=== PATIENT | male | born 1990 | race Caucasian/White ===

== ENCOUNTER 2017-01-16 18:17 | Emergency (ER) | payer OTHER ==
[2017-01-16 18:28] VITALS: BP 149/78
[2017-01-16] MEDS ORDERED: METHYLPREDNISOLONE ACETATE INJ 40 MG/1 ML ML IM ONE (18:46)
[2017-01-16] MEDS ORDERED: DEXAMETHASONE SOD PHOS INJ 10 MG/1 ML VIAL IM ONE (18:46)
[2017-01-16] MEDS ORDERED: DIAZEPAM 5 MG TABLET PO ONE (18:47)
--- NOTE | 2017-01-16 19:55 | RADIOLOGY REPORT (SQ) ---
EXAM DESCRIPTION: L SPINE 2 VIEWS COMPLETED DATE/TIME: 01/16/2017 7:09 pm REASON FOR STUDY: pain COMPARISON: None. NUMBER OF VIEWS: Two views. TECHNIQUE: AP and lateral radiographic images acquired of the lumbar spine. LIMITATIONS: None. FINDINGS: MINERALIZATION: Normal. SEGMENTATION: Normal. No transitional anatomy. ALIGNMENT: Normal. VERTEBRAE: Maintained height. No fracture or worrisome bone lesion. DISCS: Preserved height. No significant osteophytes or end plate irregularity. POSTERIOR ELEMENTS: Pedicles and facets are intact. No pars defect or posterior arch defects. HARDWARE: None in the spine. PARASPINAL SOFT TISSUES: Normal. PELVIS: Intact as visualized. No fractures or worrisome bone lesions. SI joints intact. OTHER: No other significant finding. IMPRESSION: Age-appropriate exam. TECHNICAL DOCUMENTATION: JOB ID: [id number] [employer]- All Rights Reserved
--- NOTE | 2017-01-16 20:06 | ER Document Report ---
ED General - General Chief Complaint: Back Pain Stated Complaint: BACK PAIN Time Seen by Provider: 01/16/17 18:42 Mode of Arrival: Ambulatory Information source: Patient TRAVEL OUTSIDE OF THE U.S. IN LAST 30 DAYS: No - HPI Onset: Other - 26-year-old male presents to the emergency room today stating he has had back pain for last 24 hours after playing a game according [place] yesterday. Past Medical History - General Information source: Patient - Social History Smoking Status: Unknown if Ever Smoked Cigarette use (# per day): No Family History: None Renal/ Medical History: Denies: Hx Peritoneal Dialysis Review of Systems - Review of Systems Constitutional: No symptoms reported EENT: No symptoms reported Cardiovascular: No symptoms reported Respiratory: No symptoms reported Gastrointestinal: No symptoms reported Genitourinary: No symptoms reported Male Genitourinary: No symptoms reported Musculoskeletal: Back pain, Muscle pain, Muscle stiffness Skin: No symptoms reported Hematologic/Lymphatic: No symptoms reported Neurological/Psychological: No symptoms reported Physical Exam - Vital signs Vitals: Temp Pulse Resp BP Pulse Ox 97.9 F 79 16 149/78 H 94 01/16/17 18:24 01/16/17 18:24 01/16/17 18:24 01/16/17 18:24 01/16/17 18:24 Interpretation: Normal - General General appearance: Appears well, Alert - HEENT Head: Normocephalic, Atraumatic Eyes: Normal Pupils: PERRL - Respiratory Respiratory status: No respiratory distress Chest status: Nontender Breath sounds: Normal Chest palpation: Normal - Cardiovascular Rhythm: Regular Heart sounds: Normal auscultation Murmur: No - Abdominal Inspection: Normal Distension: No distension Bowel sounds: Normal Tenderness: Nontender Organomegaly: No organomegaly - Back Back: Normal, Nontender - Extremities General upper extremity: Normal inspection, Nontender, Normal color, Normal ROM , Normal temperature General lower extremity: Normal inspection, Nontender, Normal color, Normal ROM , Normal temperature, Normal weight bearing. No: Aidee's sign - Neurological Neuro grossly intact: Yes Cognition: Normal Orientation: AAOx4 [place] Coma Scale Eye Opening: Spontaneous [place] Coma Scale Verbal: Oriented [place] Coma Scale Motor: Obeys Commands [place] Coma Scale Total: 15 Speech: Normal Motor strength normal: LUE, RUE, LLE, RLE Sensory: Normal - Psychological Associated symptoms: Normal affect, Normal mood - Skin Skin Temperature: Warm Skin Moisture: Dry Skin Color: Normal Course - Re-evaluation Re-evalutation: 01/16/17 20:04 Numbness no tingling no loss of bowel or bladder function or saddle anesthesia ambulation limited by pain good distal pulses. - Vital Signs Vital signs: Temp Pulse Resp BP Pulse Ox 97.9 F 79 16 149/78 H 94 01/16/17 18:24 01/16/17 18:24 01/16/17 18:24 01/16/17 18:24 01/16/17 18:24 - Diagnostic Test Radiology reviewed: Image reviewed, Reports reviewed Discharge - Discharge Clinical Impression: Lumbar spine strain Qualifiers: Encounter type: initial encounter Qualified Code(s): S39.012A - Strain of muscle, fascia and tendon of lower back, initial encounter Disposition: HOME, SELF-CARE Instructions: Warm Packs ([facility]), Muscle Strain ([facility]), Pain Medication Injection ([facility]), Low Back Pain ([facility]), Oral Narcotic Medication ([facility]) Prescriptions: Hydrocodone/Acetaminophen [(ER) [place] 5-325 mg Tabs #6 ER Disp] 0 tab PO Q6 PRN #20 dspk PRN Reason: Methocarbamol [Robaxin 750 mg Tablet] 750 mg PO ASDIR PRN #40 tablet PRN Reason: Naproxen Sodium [Naproxen Sodium ER] 500 mg PO Q12 PRN #20 tablet.sa PRN Reason:
== END 2017-01-16 20:48 | disposition home or self-care (01) ==
LOC: ER 18:17
DX: S39.012A Strain of muscle, fascia and tendon of lower back, initial encounter (principal); M54.9 Dorsalgia, unspecified; X58.XXXA Exposure to other specified factors, initial encounter
CPT/HCPCS: 99283; 96372; 72100; J1020; J1100

== ENCOUNTER 2017-10-22 15:08 | Emergency (ER) | payer OTHER ==
[2017-10-22 15:15] VITALS: BP 167/85
--- NOTE | 2017-10-22 15:57 | ER Document Report ---
ED Psych Disorder / Suicide <ZANDER LANDRUM - Last Filed: 10/22/17 17:24> - General TRAVEL OUTSIDE OF THE U.[place]. IN LAST 30 DAYS: No <TOBI MOTTA - Last Filed: 10/22/17 17:43> - General Chief Complaint: ETOH Abuse Stated Complaint: DEPRESSION Time Seen by Provider: 10/22/17 15:43 Notes: Patient is here to be evaluated for depression. He says he has been feeling depressed for the past couple of weeks. He has been feeling suicidal, but not homicidal thoughts. Patient has been diagnosed in the past as being bipolar and schizophrenic and he supposed to be taking Abilify, but he stopped it about a month ago because he did not think it was helping. He also is supposed to be going to [facility] for counseling, but says he has not been there for a while. Patient admits to drinking heavily. Lady accompanying patient here and referred to as step-mother, says that he drinks all the time. Patient has not been sick in any way recently. He did fracture his left tibia around [place] time and had to have surgery and still requires crutches to walk. (TOBI MOTTA) - Related Data Allergies/Adverse Reactions: No Known Allergies Allergy (Unverified 10/22/17 15:10) Past Medical History - Social History Smoking Status: Current Every Day Smoker Chew tobacco use (# tins/day): No Frequency of alcohol use: Heavy Drug Abuse: None Family History: None Patient has suicidal ideation: Yes Patient has homicidal ideation: No Psychiatric Medical History: Reports: Hx Bipolar Disorder, Hx Depression, Hx Schizophrenia Traumatic Medical History: Reports: Hx Fractures - Fracture left tibia this past July. Had surgery. Past Surgical History: Reports: Hx Orthopedic Surgery - Left tibia ACL repair <TOBI MOTTA - Last Filed: 10/22/17 17:43> Review of Systems <ZANDER LANDRUM - Last Filed: 10/22/17 17:24> <TOBI MOTTA - Last Filed: 10/22/17 17:43> - Review of Systems Notes: REVIEW OF SYSTEMS: CONSTITUTIONAL : Denies fever. EENT: Denies eye, ear, nose or mouth or throat pain or other symptoms. CARDIOVASCULAR: Denies chest pain. RESPIRATORY: Denies cough, chest congestion, or shortness of breath. GASTROINTESTINAL: Denies abdominal pain or nausea, vomiting, or diarrhea. GENITOURINARY: Denies difficulty or painful urinating, urinary frequency, blood in urine. MUSCULOSKELETAL: Denies back or neck pain. Denies joint pain or swelling. SKIN: Denies rash or skin lesions. NEUROLOGICAL: Denies LOC or altered mental status. Denies headache. Denies sensory loss or motor deficits. Psychiatric: See HPI. ALL OTHER SYSTEMS REVIEWED AND NEGATIVE. (TOBI MOTTA) Physical Exam <ZANDER LANDRUM - Last Filed: 10/22/17 17:24> - Vital signs Interpretation: Normal, Hypertensive - Minimal <TOBI MOTTA - Last Filed: 10/22/17 17:43> - Vital signs Vitals: Temp Pulse Resp BP Pulse Ox 98.1 F 96 18 167/85 H 97 10/22/17 15:14 10/22/17 15:14 10/22/17 15:14 10/22/17 15:14 10/22/17 15:14 - Notes Notes: PHYSICAL EXAMINATION: GENERAL: Well-appearing, in no acute distress. Vital signs all essentially normal except for a very slight elevation of blood pressure. HEAD: Atraumatic, normocephalic. EYES: Pupils equal round and reactive to light, extraocular movements intact. ENT: oropharynx clear without exudates. Moist mucous membranes. NECK: Normal range of motion, supple. LUNGS: Breath sounds clear and equal bilaterally. HEART: Regular rate and rhythm without murmurs. ABDOMEN: Soft, nontender. No guarding or rebound. No masses. BACK: No tenderness throughout entire back. EXTREMITIES: Normal range of motion without pain. Left leg with postsurgical changes. Crutches to walk with. NEUROLOGICAL: Normal speech, normal gait. Normal sensory, motor, and reflex exams. Awake, alert, and oriented x3. Cranial nerves normal. PSYCH: Appears and acts depressed. SKIN: Warm, dry, no rashes. (TOBI MOTTA) Course - Laboratory Result Diagrams: 10/22/17 16:04 10/22/17 16:04 <ZANDER LANDRUM - Last Filed: 10/22/17 17:24> - Laboratory Result Diagrams: 10/22/17 16:04 10/22/17 16:04 <TOBI MOTTA - Last Filed: 10/22/17 17:43> - Re-evaluation Re-evalutation: 10/22/17 16:38 Routine lab studies will be ordered. Evaluation by mental health has been requested. (TOBI MOTTA) - Vital Signs Vital signs: Temp Pulse Resp BP Pulse Ox 98.1 F 96 18 167/85 H 97 10/22/17 15:14 10/22/17 15:14 10/22/17 15:14 10/22/17 15:14 10/22/17 15:14 - Laboratory Laboratory results interpreted by me: 10/22/17 10/22/17 16:04 16:04 RBC 5.87 H RDW 15.9 H Glucose 116 H ALT 77 H Salicylates < 1.0 L Acetaminophen < 10 L Discharge <ZANDER LANDRUM - Last Filed: 10/22/17 17:24> <TOBI MOTTA - Last Filed: 10/22/17 17:43> - Discharge Clinical Impression: Depression, Suicidal ideation, Alcohol abuse with alcohol-induced disorder Condition: Stable Additional Instructions: Depression Your evaluation reveals that you have mental depression. While symptoms may be vague, they often include disturbance of sleep, fatigue, loss of appetite , and general loss of interest in life. While depression may be a side effect of drugs, or a reaction to a major change in your life, many cases have no known cause. If depression is acute, and related to a major loss in your life, you can expect it to clear completely with time. If you have been depressed a long time , are prone to repeated bouts of depression or low mood, or have been thinking of suicide, get help. Depression can be treated with anti-depressant medication and counselling. Long-term depression will often take a few weeks to clear, even with appropriate medication. Follow-up care is important. Contact your physician, the hospital emergency center, crisis line, or your counsellor if you are losing control or having self-destructive thoughts. Recommendation for patient to go to [facility] for assessment and treatment of alcohol use disorder. Resources provided to patient. Referrals: [facility] [Other] - Follow up as needed (Patient's step mother will take patient to treatment facility for assessment. )
[2017-10-22 16:30] LABS: ABSOLUTE BASOPHILS # (AUTO) 0.1 10^3/uL (0.0-0.2); ABSOLUTE EOSINOPHILS # (AUTO) 0.3 10^3/uL (0.0-0.6); ABSOLUTE LYMPHOCYTES (AUTO) 1.9 10^3/uL (0.5-4.7); ABSOLUTE MONOCYTES (AUTO) 0.8 10^3/uL (0.1-1.4); ABSOLUTE NEUT (AUTO) 6.5 10^3/uL (1.7-8.2); BASOPHILS % (AUTO) 0.6 % (0-2); EOSINOPHILS % (AUTO) 2.8 % (0-6); HEMATOCRIT 50.2 % (37.9-51.0); HEMOGLOBIN 16.6 g/dL (13.5-17.0); MEAN CORPUSCULAR HEMOGLOBIN 28.2 pg (27.0-33.4); MEAN CORPUSCULAR HGB CONC 33.1 g/dL (32.0-36.0); MEAN CORPUSCULAR VOLUME 85 fl (80-97); PLATELET COUNT 185 10^3/uL (150-450); RED BLOOD COUNT 5.87 10^6/uL (4.35-5.55); RED CELL DISTRIBUTION WIDTH 15.9 % (11.5-14.0); SEGMENTED NEUTROPHILS % (AUTO) 68.6 % (42-78); TOTAL CELLS COUNTED % (AUTO) 100 %; WHITE BLOOD COUNT 9.5 10^3/uL (4.0-10.5)
[2017-10-22 16:55] LABS: ALANINE AMINOTRANSFERASE 77 U/L (21-72); ALBUMIN 4.7 g/dL (3.5-5.0); ALKALINE PHOSPHATASE 80 U/L (38-126); ANION GAP 14 (5-19); ASPARTATE AMINO TRANSFERASE 38 U/L (17-59); BILIRUBIN,DIRECT 0.4 mg/dL (0.0-0.4); BILIRUBIN,TOTAL 0.6 mg/dL (0.2-1.3); BLOOD UREA NITROGEN 15 mg/dL (7-20); CALCIUM 10.1 mg/dL (8.4-10.2); CARBON DIOXIDE 26 mmol/L (22-30); CHLORIDE 103 mmol/L (98-107); GLUCOSE 116 mg/dL (75-110); POTASSIUM 3.7 mmol/L (3.6-5.0); SODIUM 143.2 mmol/L (137-145); TOTAL PROTEIN 8.1 g/dL (6.3-8.2)
[2017-10-22 16:57] LABS: ACETAMINOPHEN < 10 ug/mL (10-30); ALCOHOL < 10 mg/dL (NONE DETECTED); SALICYLATE < 1.0 mg/dL (2.0-20.0)
--- NOTE | 2017-10-22 17:00 | PSYCHOLOGICAL NOTE ---
Psych Note - Psych Note Psych Note: Reason for consult: Suicidal ideation plan without intent/ Depression Contact Permissions: Veda Headley Time of consult: 4: 15 pm Final Disposition 5:00 pm Patient is a 27 year old male. Patient denies HI. Patient reports having suicidal thoughts that come and go but never follows through with them because when he imagines them he does not like the ending ( occasional plan with no actual intent). Patient reports he has been experiencing depression. Patient reports his depression is when he does not feel like doing anything. Patient reports he has had a relationship with his ex on and off for the last year, but she is with a child. Patient reports she will call him confide in him and listen to him as well but then becomes angry at whatever it is and take it out on him. Patient reports he has also been dealing with his leg, and walking on crutches. Patient reports that he has gone to an inpatient facility 3 times in his life the last time being at the end of 2014. Patient reports that the last time he was committed was due to him hearing voices and seeing stuff. Patient reports he has had a previous diagnosis of Bipolar Disorder and Schizophrenia. Patient denies substance use. Patient reports he wants people to talk to and states that he felt better after talking to the doctor and now to clinician. Patient reports if he were to get therapy he felt it would be helpful for his depression. Collateral information: Veda Headley ( Patient's father's girlfriend). Veda reports patient was not honest about substance use. Veda reports patient has an alcohol use disorder. Veda reports patient will drink daily to the point that he is vomiting wherever he is and sleeping on the sofa with no motivation. Veda reports that she is watching patient kill himself slowly with alcohol. Veda reports that her and patient's father have been discussing patient sleeping on the sofa drinking all day and that he needs to change because they cant allow him to be that way. Veda reports that patient's depression is beyond his issues with his relationship. Veda reports patient does not interact or engage others and is not a mean person but lately have been snippy with her which is not his norm. Veda reports patient will drink an 18 pack of beer in a short amount of time. Patient disagrees and states that an 18 pack of beer could last a couple of days for him. Veda reports that her and patient's father gave patient an ultimatum to get help because they have been discussing it and he cannot continue to live with them if he is going to drink alcohol as excessively as he does. Veda states if patient does not seek help, patient will have to move in with his mom. Veda states the family dynamic at home has not been the best for patient, as there is a lot of environmental factors influencing patient's depression and alcohol use. Medication Recommendations: Medication recommendations made by [facility] contracted psychiatric provider, Dr. Elvis MD includes: None Diagnosis: Per Hx 311 (F32.9) Unspecified Depressive Disorder 303.90 ( F10.20) Alcohol use disorder severe Impression/Plan: Patient is psychiatrically cleared for discharge. Recommendation for patient to follow up with substance use treatment at [facility]. Patient's step mother agreed to transport patient to [facility] for assessment. Patient verbally agreed to go to treatment voluntarily. Resource information and clear verbal instructions provided to patient and patient's step-mother. Consulted with Dr. Aguilar regarding the management and care of patient.
--- NOTE | 2017-10-22 20:20 | EKG REPORT ---
SEVERITY:- ABNORMAL ECG - SINUS RHYTHM PROBABLE LEFT VENTRICULAR HYPERTROPHY : Confirmed by: Reed Angel MD 22-Oct-2017 20:18:55
== END 2017-10-22 17:50 | disposition home or self-care (01) ==
LOC: ER 15:08
DX: F32.9 Major depressive disorder, single episode, unspecified (principal); F10.19 Alcohol abuse with unspecified alcohol-induced disorder; R45.851 Suicidal ideations; F17.200 Nicotine dependence, unspecified, uncomplicated
CPT/HCPCS: 36415; 80053; 80307; 85025; 93005; 93010; 99285

== ENCOUNTER 2018-08-19 17:05 | Emergency (ER) | payer SELFPAY ==
[2018-08-19] MEDS ORDERED: HALOPERIDOL LACTATE INJ 5 MG/1 ML VIAL IM ONE (18:02)
--- NOTE | 2018-08-19 18:17 | ER Document Report ---
Addendum entered and electronically signed by YOU STREET LCSWA 08/20/18 12:34: Discharge - Discharge Clinical Impression: Bipolar 1 disorder Condition: Stable Disposition: HOME, SELF-CARE Additional Instructions: You have been evaluated both medical and behavioral health teams have been deemed appropriate for discharge. You are highly encouraged to follow-up with [facility] for ongoing mental health treatment. You have been provided a prescription for Zyprexa 5 mg twice daily and Cogentin 1 mg daily; please take as directed. Bipolar Disorder Bipolar disorder is also called manic-depressive disorder. Depression alternates with brain hyperactivity called lizet. Each phase lasts from several days to a few weeks. We don't know exactly what causes bipolar disorder, but it's treatable. During the "manic phase," you may feel elated and energetic. You may have racing thoughts, rapid speech, increased activity, and grandiose ideas. During this time, you may not realize how poor your judgement is. Inappropriate spending, drug abuse, excessive alcohol use, marriage problems, and irre sponsible sexual behavior are common during the manic phase. During the "depressive phase," you might feel depressed, guilty, worthless, fatigued, and unable to concentrate. You might have thoughts of suicide. Good treatments are available for bipolar disorder. [place] is a classic drug for bipolar disorder, and is still often useful. If the manic phase is very mild, an antidepressant alone can be prescribed. If the manic phase is very severe, an antipsychotic medicine (such as Haldol) may be needed. The treatment must be matched to your symptoms, so it's important to work closely with your psychiatric care provider. Contact your physician, the hospital emergency center, crisis line, or your counsellor if you are losing control or having self-destructive thoughts. Referrals: [facility] [Outside] - Follow up as needed [facility] [Outside] - Follow up in 3-5 days Original Note: ED General - General Chief Complaint: Psych Problem Stated Complaint: PSYCH EVAL Time Seen by Provider: 08/19/18 17:15 Mode of Arrival: Ambulatory Information source: Patient Notes: 28-year-old male with a history of bipolar and schizophrenia presents the emergency department for worsening of his hallucinations. Patient states that he has been off of his medication for the last month. He states that he was admitted to [facility] 1 month ago and given prescriptions for his psychiatric medications. Patient states that he never filled the prescriptions. He states that he did not have money. He denies any suicidal or homicidal ideations. TRAVEL OUTSIDE OF THE [place] IN LAST 30 DAYS: No - HPI Onset: Last week Onset/Duration: Gradual Quality of pain: No pain Severity: None Pain Level: Denies Associated symptoms: None Exacerbated by: Denies Relieved by: Denies Similar symptoms previously: Yes Recently seen / treated by doctor: No - Related Data Allergies/Adverse Reactions: No Known Allergies Allergy (Unverified 10/22/17 15:10) Past Medical History - General Information source: Patient - Social History Smoking Status: Current Every Day Smoker Frequency of alcohol use: Occasional Drug Abuse: None Family History: None Patient has suicidal ideation: No Patient has homicidal ideation: No Renal/ Medical History: Denies: Hx Peritoneal Dialysis Psychiatric Medical History: Reports: Hx Bipolar Disorder, Hx Depression, Hx Schizophrenia Traumatic Medical History: Reports: Hx Fractures - Fracture left tibia this past July. Had surgery. Past Surgical History: Reports: Hx Orthopedic Surgery - Left tibia ACL repair Review of Systems - Review of Systems Constitutional: No symptoms reported EENT: No symptoms reported Cardiovascular: No symptoms reported Respiratory: No symptoms reported Gastrointestinal: No symptoms reported Genitourinary: No symptoms reported Male Genitourinary: No symptoms reported Musculoskeletal: No symptoms reported Skin: No symptoms reported Hematologic/Lymphatic: No symptoms reported Neurological/Psychological: Hallucinations -: Yes All other systems reviewed and negative Physical Exam - Vital signs Vitals: Temp Pulse Resp BP Pulse Ox 98.6 F 81 16 140/80 H 99 08/19/18 17:11 08/19/18 17:11 08/19/18 17:11 08/19/18 17:11 08/19/18 17:11 - Notes Notes: PHYSICAL EXAMINATION: GENERAL: Well-appearing, well-nourished and in no acute distress. HEAD: Atraumatic, normocephalic. EYES: Pupils equal round and reactive to light, extraocular movements intact, sclera anicteric, conjunctiva are normal. ENT: Nares patent, oropharynx clear without exudates. Moist mucous membranes. NECK: Normal range of motion, supple without lymphadenopathy LUNGS: Breath sounds clear to auscultation bilaterally and equal. No wheezes rales or rhonchi. HEART: Regular rate and rhythm without murmurs ABDOMEN: Soft, nontender, nondistended abdomen. No guarding, no rebound. No masses appreciated. Musculoskeletal: Normal range of motion, no pitting or edema. No cyanosis. Sutures to his right hand. NEUROLOGICAL: Cranial nerves grossly intact. Normal speech, normal gait. Normal sensory, motor exams PSYCH: Normal mood, normal affect. Patient admits to hearing voices. He denies any suicidal or homicidal ideations. SKIN: Warm, Dry, normal turgor, no rashes or lesions noted. Sutures clean, dry, intact. Course - Re-evaluation Re-evalutation: 08/20/18 10:33 Patient turned over to Dr. Blanco with labs pending. - Vital Signs Vital signs: Temp Pulse Resp BP Pulse Ox 97.9 F 74 20 120/79 97 08/20/18 06:51 08/20/18 06:51 08/20/18 06:51 08/20/18 06:51 08/20/18 06:51 - Laboratory Result Diagrams: 08/19/18 18:25 08/19/18 18:25 Laboratory results interpreted by me: 08/19/18 18:25 Sodium 136.9 L Glucose 134 H Salicylates < 1.0 L Acetaminophen < 10 L
[2018-08-19 18:38] LABS: ABSOLUTE EOSINOPHILS # (AUTO) 0.3 10^3/uL (0.0-0.6); ABSOLUTE LYMPHOCYTES (AUTO) 2.4 10^3/uL (0.5-4.7); ABSOLUTE MONOCYTES (AUTO) 0.4 10^3/uL (0.1-1.4); ABSOLUTE NEUT (AUTO) 4.9 10^3/uL (1.7-8.2); BASOPHILS % (AUTO) 0.5 % (0-2); EOSINOPHILS % (AUTO) 3.3 % (0-6); HEMATOCRIT 43.5 % (37.9-51.0); HEMOGLOBIN 14.9 g/dL (13.5-17.0); MEAN CORPUSCULAR HEMOGLOBIN 29.9 pg (27.0-33.4); MEAN CORPUSCULAR HGB CONC 34.3 g/dL (32.0-36.0); MEAN CORPUSCULAR VOLUME 87 fl (80-97); MONOCYTES % (AUTO) 4.9 % (3-13); PLATELET COUNT 174 10^3/uL (150-450); RED BLOOD COUNT 4.99 10^6/uL (4.35-5.55); RED CELL DISTRIBUTION WIDTH 13.6 % (11.5-14.0); SEGMENTED NEUTROPHILS % (AUTO) 61.3 % (42-78); TOTAL CELLS COUNTED % (AUTO) 100 %
[2018-08-19 18:56] LABS: ALANINE AMINOTRANSFERASE 66 U/L (21-72); ALBUMIN 4.3 g/dL (3.5-5.0); ALKALINE PHOSPHATASE 65 U/L (38-126); ANION GAP 10 (5-19); ASPARTATE AMINO TRANSFERASE 39 U/L (17-59); BILIRUBIN,DIRECT 0.2 mg/dL (0.0-0.4); BILIRUBIN,TOTAL 1.3 mg/dL (0.2-1.3); BLOOD UREA NITROGEN 20 mg/dL (7-20); CALCIUM 9.6 mg/dL (8.4-10.2); CARBON DIOXIDE 25 mmol/L (22-30); CHLORIDE 102 mmol/L (98-107); GLUCOSE 134 mg/dL (75-110); POTASSIUM 3.7 mmol/L (3.6-5.0); SODIUM 136.9 mmol/L (137-145); TOTAL PROTEIN 6.7 g/dL (6.3-8.2)
[2018-08-19 18:57] LABS: ACETAMINOPHEN < 10 ug/mL (10-30); ALCOHOL < 10 mg/dL (NONE DETECTED); SALICYLATE < 1.0 mg/dL (2.0-20.0)
[2018-08-19] MEDS ORDERED: NICOTINE 21 MG/24 HR PATCH.TD24 TD ONE (19:09)
--- NOTE | 2018-08-19 21:49 | ER Document Report ---
Doctor's Note Notes: Patient's blood work reviewed, unremarkable, urine still pending, I feel the patient can be cleared from medical standpoint for other evaluation and recommendations from mental health team.
--- NOTE | 2018-08-19 23:44 | EKG REPORT ---
SEVERITY:- ABNORMAL ECG - SINUS RHYTHM NONSPECIFIC INTRAVENTRICULAR CONDUCTION DELAY : Confirmed by: Geoffrey Ward 19-Aug-2018 23:43:51
[2018-08-20 07:54] LABS: APPEARANCE,URINE SLIGHTLY-CLOUDY; BILIRUBIN,URINE NEGATIVE (NEGATIVE); COLOR,URINE YELLOW; GLUCOSE, URINE NEGATIVE (NEGATIVE); KETONES,URINE NEGATIVE (NEGATIVE); LEUKOCYTE ESTERASE,URINE NEGATIVE (NEGATIVE); NITRITE,URINE NEGATIVE (NEGATIVE); PROTEIN,URINE NEGATIVE (NEGATIVE); URINE SPECIFIC GRAVITY 1.025; UROBILINOGEN,URINE NEGATIVE mg/dL (<2.0)
[2018-08-20 08:16] LABS: URINE AMPHETAMINES SCREEN NEGATIVE; URINE BARBITURATES SCREEN NEGATIVE; URINE BENZODIAZEPINES SCREEN NEGATIVE; URINE COCAINE SCREEN NEGATIVE; URINE MARIJUANA (THC) SCREEN NEGATIVE; URINE METHADONE SCREEN NEGATIVE; URINE PHENCYCLIDINE SCREEN NEGATIVE
--- NOTE | 2018-08-20 09:12 | ER Document Report ---
Doctor's Note Notes: 08/20/18 09:46 Patient seen and evaluated by myself. Patient has a history of bipolar disorder and schizophrenia. He presented to the emergency department with complaints of worsening hallucinations. He is been off of his medications for the last month. He denies any suicidal or homicidal ideations. No issues overnight per nursing. Patient's vital signs are stable. Patient has no complaints in the room. Awaiting behavioral health recommendations. 08/20/18 14:05 Behavioral health saw and evaluated the patient. They feel that he can be discharged home. We will start him on Zyprexa 5 mg twice daily and Cogentin 1 mg daily. Patient has appropriate follow-up. Patient denies any suicidal or homicidal ideations. Patient stated that his sutures to his hand needed to be removed today. The nurse remove the stitches. She noticed some purulent material from 1 of the sutures on the thumb. I will start the patient on an antibiotic to cover for infection. No signs of infection appreciated on exam. There was no erythema, edema, warmth. Normal range of motion. 2+ radial pulse. Capillary refill less than 2 seconds. I will refer patient to orthopedic surgery for wound check.
[2018-08-20] MEDS ORDERED: BENZTROPINE MESYLATE 1 MG TABLET PO ONE (14:08)
[2018-08-20] MEDS ORDERED: OLANZAPINE 5 MG TABLET PO ONE (14:08)
[2018-08-20 14:35] VITALS: BP 131/71
--- NOTE | 2018-08-23 14:37 | PSYCHOLOGICAL NOTE ---
Psych Note - Psych Note Date seen by psych provider: 08/20/18 Time seen by psych provider: 09:30 Psych Note: Reason for Consult: hallucinations 28-year-old male with a history of bipolar and schizophrenia presents the emergency department for worsening of his hallucinations. Patient disclosed that he took a cab here after friend suggested he come here for help. He states that he has been having difficulty with hallucinations making him feel like he is "really high like on meth but not." He confirms he does have a history of meth use however states that he has not used in a "long time." He reports that he does have some difficulties with sleeping sleeping only an hour or so at a time but denies any thoughts of wanting harm himself or others. When he has hallucinations he reports he sees them in color when he hears things it is "all around me but when I look there is no one there." He reports that he was admitted to [facility] approximately 1 month ago however after 1 week of being discharged he started having hallucinations again. He confirms he did not fill his prescription because he did not have any money to fill it. He reports he did not feel that the prescription was helping anyway. He reports that he does have an outpatient mental health provider [facility] however it is not for another few weeks. He states that he has a diagnosis of schizoaffective bipolar type that was diagnosed back in 2014 when he was in [facility]. He states he slipped here approximately 1 week but has come down frequently to [facility] to visit friends. Patient disclosed that he last had difficulty with hallucinations just prior to arrival to [facility]. Patient is alert and orientated to person, place, time and circumstance. Mood is euthymic with congruent affect. Patient denies suicidal and homicidal ideation. Patient discloses concerns with hallucinations. While patient is currently not responding to internal stimuli, his description does correlate with known manifestations. Delusions are absent behaviors congruent with an intact reality based presentation i.e. organized and linear thought process. Eye contact is well-maintained. Conversational speech is within normal rate, tone and prosody. Intellectual abilities appear to be within the average range. Attention and concentration are good. Insight, judgment, impulse control are fair. Medication recommendations per [facility] contracted psychiatrist Dr. Vibha BRAVO are as follows Zyprexa 5 mg twice daily Cogentin 1 mg daily 295.70 (F25.0) Schizoaffective bipolar type per history provided by patient Impression\\plan: Patient is cleared from acute psychiatric services. Patient discloses concerns with hallucinations and requesting assistance with medication. Patient states he was unable to fill previous prescriptions because the amount of money they would cost. He confirms he can afford Zyprexa and Cogentin (Zyprexa is currently $9 at [facility]). Patient denies thoughts of wanting harm himself or others and is currently not responding to internal sti muli. Medication recommendations have been provided. Patient is recommended to follow-up with outpatient mental health services. Dr. Aguilar was consulted and care management this patient; attending physician is agreement with recommendations and disposition.
== END 2018-08-20 14:48 | disposition home or self-care (01) ==
LOC: ER 17:05
DX: F31.9 Bipolar disorder, unspecified (principal); R44.3 Hallucinations, unspecified; F17.200 Nicotine dependence, unspecified, uncomplicated
CPT/HCPCS: 93005; 99284; 96372; 36415; 80307 ×4; 85025; 80053; 81001; 93010; J1630

== ENCOUNTER 2019-01-09 13:18 | Emergency (ER) | payer SELFPAY ==
[2019-01-09 13:35] VITALS: BP 140/64
--- NOTE | 2019-01-09 14:40 | ER Document Report ---
ED Medical Screen (RME) - General Chief Complaint: Psych Problem Stated Complaint: PSYCH EVAL Time Seen by Provider: 01/09/19 14:36 Mode of Arrival: Ambulatory Information source: Patient TRAVEL OUTSIDE OF THE U[place] IN LAST 30 DAYS: No - HPI Patient complains to provider of: Hallucinations Notes: 01/09/19 14:39 Patient here with complaints of hearing voices and getting sick of it. He has a history of this in the past. He also complains some increasing anxiety. He states that his Zyprexa is not helping. He does not endorse any homicidal or suicidal ideation at this time. Exam No distress, nontoxic-appearing. Plan IVC protocol has been initiated. An initial examination was made on the patient as part of the triage process, and it was determined a more comprehensive evaluation was necessary. Initial labs were ordered and patient was transferred to another provider in the ED who assumed care and finished evaluation and plan. - Related Data Allergies/Adverse Reactions: No Known Allergies Allergy (Verified 01/09/19 13:20) Past Medical History Renal/ Medical History: Denies: Hx Peritoneal Dialysis Psychiatric Medical History: Reports: Hx Bipolar Disorder, Hx Depression, Hx Schizophrenia Traumatic Medical History: Reports: Hx Fractures - Fracture left tibia this past July. Had surgery. Past Surgical History: Reports: Hx Orthopedic Surgery - Left tibia ACL repair Physical Exam - Vital signs Vitals: Temp Pulse Resp BP Pulse Ox 97.8 F 58 L 18 140/64 H 96 01/09/19 13:34 01/09/19 13:34 01/09/19 13:34 01/09/19 13:34 01/09/19 13:34 Course - Vital Signs Vital signs: Temp Pulse Resp BP Pulse Ox 97.8 F 58 L 18 140/64 H 96 01/09/19 13:34 01/09/19 13:34 01/09/19 13:34 01/09/19 13:34 01/09/19 13:34
[2019-01-09 15:28] LABS: ABSOLUTE EOSINOPHILS # (AUTO) 0.1 10^3/uL (0.0-0.6); ABSOLUTE LYMPHOCYTES (AUTO) 1.6 10^3/uL (0.5-4.7); ABSOLUTE MONOCYTES (AUTO) 0.5 10^3/uL (0.1-1.4); BASOPHILS % (AUTO) 0.5 % (0-2); EOSINOPHILS % (AUTO) 2.1 % (0-6); HEMATOCRIT 43.2 % (37.9-51.0); HEMOGLOBIN 14.5 g/dL (13.5-17.0); MEAN CORPUSCULAR HEMOGLOBIN 28.9 pg (27.0-33.4); MEAN CORPUSCULAR HGB CONC 33.5 g/dL (32.0-36.0); MEAN CORPUSCULAR VOLUME 86 fl (80-97); MONOCYTES % (AUTO) 7.9 % (3-13); PLATELET COUNT 143 10^3/uL (150-450); RED BLOOD COUNT 5.01 10^6/uL (4.35-5.55); RED CELL DISTRIBUTION WIDTH 14.2 % (11.5-14.0); SEGMENTED NEUTROPHILS % (AUTO) 63.5 % (42-78); TOTAL CELLS COUNTED % (AUTO) 100 %; WHITE BLOOD COUNT 6.3 10^3/uL (4.0-10.5)
[2019-01-09 15:34] LABS: AMORPHOUS SEDIMENT,URINE TRACE /HPF; APPEARANCE,URINE SLIGHTLY-CLOUDY; BILIRUBIN,URINE NEGATIVE (NEGATIVE); CALCIUM OXALATE CRYSTALS,URINE FEW /HPF; COLOR,URINE YELLOW; GLUCOSE, URINE NEGATIVE (NEGATIVE); KETONES,URINE NEGATIVE (NEGATIVE); LEUKOCYTE ESTERASE,URINE NEGATIVE (NEGATIVE); NITRITE,URINE NEGATIVE (NEGATIVE); PROTEIN,URINE NEGATIVE (NEGATIVE); URINE SPECIFIC GRAVITY 1.024; UROBILINOGEN,URINE NEGATIVE mg/dL (<2.0)
[2019-01-09 15:49] LABS: ALANINE AMINOTRANSFERASE 56 U/L (21-72); ALKALINE PHOSPHATASE 63 U/L (38-126); ANION GAP 12 (5-19); ASPARTATE AMINO TRANSFERASE 25 U/L (17-59); BILIRUBIN,DIRECT 0.1 mg/dL (0.0-0.4); BLOOD UREA NITROGEN 11 mg/dL (7-20); CALCIUM 9.8 mg/dL (8.4-10.2); CARBON DIOXIDE 26 mmol/L (22-30); CHLORIDE 103 mmol/L (98-107); GLUCOSE 90 mg/dL (75-110); POTASSIUM 4.5 mmol/L (3.6-5.0); SODIUM 140.9 mmol/L (137-145); TOTAL PROTEIN 6.7 g/dL (6.3-8.2)
[2019-01-09 15:51] LABS: ACETAMINOPHEN < 10 ug/mL (10-30); ALCOHOL < 10 mg/dL (NONE DETECTED); SALICYLATE < 1.0 mg/dL (2.0-20.0)
[2019-01-09 15:54] LABS: URINE AMPHETAMINES SCREEN NEGATIVE; URINE BARBITURATES SCREEN NEGATIVE; URINE BENZODIAZEPINES SCREEN NEGATIVE; URINE COCAINE SCREEN NEGATIVE; URINE MARIJUANA (THC) SCREEN NEGATIVE; URINE METHADONE SCREEN NEGATIVE; URINE PHENCYCLIDINE SCREEN NEGATIVE
--- NOTE | 2019-01-09 17:15 | ER Document Report ---
ED Psych Disorder / Suicide - General Chief Complaint: Psych Problem Stated Complaint: PSYCH EVAL Time Seen by Provider: 01/09/19 14:36 Mode of Arrival: Ambulatory Notes: 28-year-old male. Long-standing history of schizophrenia to the emergency department chief complaint of hearing voices. Patient states that he has been hearing voices for quite some time. Does not feel like the medications he is on is working. Reportedly patient was just hospitalized in [place] for the same complaint. He is homeless. Was reportedly on those medications. Denies any suicidal or homicidal thoughts. Hearing voices of his uncle. TRAVEL OUTSIDE OF THE [place] IN LAST 30 DAYS: No - HPI Patient complains to provider of: Hallucinating. No: Homicidal ideation, Suici so ideation, Suicidal plan, Suicidal attempt, Self injury Severity: None Pain Level: Denies - Related Data Allergies/Adverse Reactions: No Known Allergies Allergy (Verified 01/09/19 13:20) Past Medical History - General Information source: Patient - Social History Smoking Status: Current Every Day Smoker Frequency of alcohol use: None Drug Abuse: None Lives with: Homeless Family History: None Patient has suicidal ideation: No Patient has homicidal ideation: No Renal/ Medical History: Denies: Hx Peritoneal Dialysis Psychiatric Medical History: Reports: Hx Bipolar Disorder, Hx Depression, Hx Schizophrenia Traumatic Medical History: Reports: Hx Fractures - Fracture left tibia this past July. Had surgery. Past Surgical History: Reports: Hx Orthopedic Surgery - Left tibia ACL repair Review of Systems - Review of Systems Notes: Constitutional: denies: Chills, Diaphoresis, Fever, Malaise, Weakness EENT: denies: Eye discharge, Blurred vision, Tearing, Double vision, Nose congestion, Nose discharge, Throat swelling, Mouth pain Cardiovascular: denies: Palpitations, Heart racing, Orthopnea, Dyspnea, Chest pain Respiratory: denies: Cough, Hurts to breathe, Wheezing, Shortness of breath Gastrointestinal: denies: Abdominal pain, Diarrhea, Nausea, Vomiting, Black stools, bright red blood in stool Genitourinary: denies: Burning, Dysuria, Discharge, Frequency, Flank pain, Hematuria Musculoskeletal: denies: Joint pain, Joint swelling, Muscle pain, Muscle stif fness, back pain Hematologic/Lymphatic: denies: Anemia, Easy bleeding, Easy bruising, Blood clots Neurological/Psychological: denies: Confusion, Dementia, Depression, Loss of consciousness. History of schizophrenia Skin: No lesions, no masses, no skin breakdown, no abscesses Physical Exam - Vital signs Vitals: Temp Pulse Resp BP Pulse Ox 97.8 F 58 L 18 140/64 H 96 01/09/19 13:34 01/09/19 13:34 01/09/19 13:34 01/09/19 13:34 01/09/19 13:34 Interpretation: Normal - General General appearance: Appears well, Alert - HEENT Head: Normocephalic, Atraumatic Eyes: Normal Pupils: PERRL - Respiratory Respiratory status: No respiratory distress Chest status: Nontender Breath sounds: Normal Chest palpation: Normal - Cardiovascular Rhythm: Regular Heart sounds: Normal auscultation Murmur: No - Abdominal Inspection: Normal Distension: No distension Bowel sounds: Normal Tenderness: Nontender Organomegaly: No organomegaly - Back Back: Normal, Nontender - Extremities General upper extremity: Normal inspection, Nontender, Normal color, Normal ROM, Normal temperature General lower extremity: Normal inspection, Nontender, Normal color, Normal ROM, Normal temperature, Normal weight bearing. No: Aidee's sign - Neurological Neuro grossly intact: Yes Cognition: Normal Orientation: AAOx4 Milka Coma Scale Eye Opening: Spontaneous [place] Coma Scale Verbal: Oriented [place] Coma Scale Motor: Obeys Commands [place] Coma Scale Total: 15 Speech: Normal Motor strength normal: LUE, RUE, LLE, RLE Sensory: Normal - Psychological Associated symptoms: Normal affect, Normal mood - Skin Skin Temperature: Warm Skin Moisture: Dry Skin Color: Normal Course - Re-evaluation Re-evalutation: 01/09/19 17:18 Laboratory 01/09/19 01/09/19 01/09/19 15:07 15:07 15:07 WBC 6.3 RBC 5.01 Hgb 14.5 Hct 43.2 MCV 86 MCH 28.9 MCHC 33.5 RDW 14.2 H Plt Count 143 L Seg Neutrophils % 63.5 Lymphocytes % 26.0 Monocytes % 7.9 Eosinophils % 2.1 Basophils % 0.5 Absolute Neutrophils 4.0 Absolute Lymphocytes 1.6 Absolute Monocytes 0.5 Absolute Eosinophils 0.1 Absolute Basophils 0.0 Sodium 140.9 Potassium 4.5 Chloride 103 Carbon Dioxide 26 Anion Gap 12 BUN 11 Creatinine 0.98 Est GFR ( Amer) > 60 Est GFR (Non-Af Amer) > 60 Glucose 90 Calcium 9.8 Total Bilirubin 1.0 Direct Bilirubin 0.1 Neonat Total Bilirubin Not Reportable Neonat Direct Bilirubin Not Reportable Neonat Indirect Bili Not Reportable AST 25 ALT 56 Alkaline Phosphatase 63 Total Protein 6.7 Albumin 4.0 Urine Color YELLOW Urine Appearance SLIGHTLY-CLOUDY Urine pH 6.0 Ur Specific Philo 1.024 Urine Protein NEGATIVE Urine Glucose (UA) NEGATIVE Urine Ketones NEGATIVE Urine Blood NEGATIVE Urine Nitrite NEGATIVE Urine Bilirubin NEGATIVE Urine Urobilinogen NEGATIVE Ur Leukocyte Esterase NEGATIVE Urine WBC (Auto) 1 Urine RBC (Auto) 1 Squamous Epi Cells Auto <1 Calcium Oxalate Cr Auto FEW Amorphous Sediment Auto TRACE Urine Mucus (Auto) MANY Urine Ascorbic Acid 20 H Salicylates < 1.0 L Urine Opiates Screen Urine Methadone Screen Acetaminophen < 10 L Ur Barbiturates Screen Ur Phencyclidine Scrn Ur Amphetamines Screen U Benzodiazepines Scrn Urine Cocaine Screen U Marijuana (THC) Screen Serum Alcohol < 10 01/09/19 15:07 WBC RBC Hgb Hct MCV MCH MCHC RDW Plt Count Seg Neutrophils % Lymphocytes % Monocytes % Eosinophils % Basophils % Absolute Neutrophils Absolute Lymphocytes Absolute Monocytes Absolute Eosinophils Absolute Basophils Sodium Potassium Chloride Carbon Dioxide Anion Gap BUN Creatinine Est GFR ( Amer) Est GFR (Non-Af Amer) Glucose Calcium Total Bilirubin Direct Bilirubin Neonat Total Bilirubin Neonat Direct Bilirubin Neonat Indirect Bili AST ALT Alkaline Phosphatase Total Protein Albumin Urine Color Urine Appearance Urine pH Ur Specific Phil[place] Urine Protein Urine Glucose (UA) Urine Ketones Urine Blood Urine Nitrite Urine Bilirubin Urine Urobilinogen Ur Leukocyte Esterase Urine WBC (Auto) Urine RBC (Auto) Squamous Epi Cells Auto Calcium Oxalate Cr Auto Amorphous Sediment Auto Urine Mucus (Auto) Urine Ascorbic Acid Salicylates Urine Opiates Screen NEGATIVE Urine Methadone Screen NEGATIVE Acetaminophen Ur Barbiturates Screen NEGATIVE Ur Phencyclidine Scrn NEGATIVE Ur Amphetamines Screen NEGATIVE U Benzodiazepines Scrn NEGATIVE Urine Cocaine Screen NEGATIVE U Marijuana (THC) Screen NEGATIVE Serum Alcohol Mental health team has seen the patient. Patient was recently hospitalized and had inpatient treatment in the outpatient recommendations were for Zyprexa and Cogentin. Reportedly patient does have these prescriptions. Uncertain we are going to be able to do any better than an inpatient psychiatric admission. I find no significant reason why patient needs to spend the night here for any medication changes. I am going to discharge him with a resource sheet at this time in stable condition. - Vital Signs Vital signs: Temp Pulse Resp BP Pulse Ox 97.8 F 58 L 18 140/64 H 96 01/09/19 13:34 01/09/19 13:34 01/09/19 13:34 01/09/19 13:34 01/09/19 13:34 - Laboratory Result Diagrams: 01/09/19 15:07 01/09/19 15:07 Laboratory results interpreted by me: 01/09/19 01/09/19 01/09/19 15:07 15:07 15:07 RDW 14.2 H Plt Count 143 L Urine Ascorbic Acid 20 H Salicylates < 1.0 L Acetaminophen < 10 L Discharge - Discharge Clinical Impression: Chronic schizophrenia not affecting current episode of care Condition: Good Disposition: HOME, SELF-CARE Instructions: Schizophrenia ([facility]) Additional Instructions: Take the medications as prescribed. Follow-up with behavioral health. Return for worsening symptoms or concerns. Referrals: [facility] [Outside] - Follow up tomorrow
--- NOTE | 2019-01-09 23:39 | EKG REPORT ---
SEVERITY:- OTHERWISE NORMAL ECG - SINUS BRADYCARDIA : Confirmed by: Geoffrey Ward 09-Jan-2019 23:38:32
== END 2019-01-09 17:49 | disposition home or self-care (01) ==
LOC: ER 13:18
DX: F20.9 Schizophrenia, unspecified (principal); Z59.0 Homelessness; Z79.899 Other long term (current) drug therapy; F17.200 Nicotine dependence, unspecified, uncomplicated
CPT/HCPCS: 36415; 80053; 80307; 81001; 85025; 93005; 93010; 99285

== ENCOUNTER 2019-03-03 09:21 | Emergency (ER) | payer SELFPAY ==
[2019-03-03 09:26] VITALS: BP 140/91
--- NOTE | 2019-03-03 09:40 | ER Document Report ---
HPI - HPI Time Seen by Provider: 03/03/19 09:29 Pain Level: 0 Notes: Patient is a 28-year-old male with a history of schizophrenia and bipolar who presents requesting medication refill of his Cogentin 1 mg twice daily and Haldol 10 mg at night. Patient states that he has been out for a week and is not scheduled to see another provider in a month. Patient states that he is otherwise been status quo without any acute changes in his health or mentation. Patient does not have any SI/HI. He does have chronic issues with visual and auditory hallucinations. Denies drug allergies. Denies any headache, fever, neck pain, changes in vision/speech/mentation/hearing, URI, sore throat, chest pain, palpitations, syncope, cough, shortness of breath, wheeze, dyspnea, abdominal pain, nausea/vomiting/diarrhea, urinary retention, dysuria, hematuria, loss of control of bowel or bladder, numbness/tingling, muscle paralysis/weakness, or rash. - ROS Systems Reviewed and Negative: Yes All other systems reviewed and negative - REPRODUCTIVE Reproductive: DENIES: : Past Medical History - Social History Smoking Status: Unknown if Ever Smoked Family History: None Renal/ Medical History: Denies: Hx Peritoneal Dialysis Psychiatric Medical History: Reports: Hx Bipolar Disorder, Hx Depression, Hx Schizophrenia Traumatic Medical History: Reports: Hx Fractures - Fracture left tibia this past July. Had surgery. Past Surgical History: Reports: Hx Orthopedic Surgery - Left tibia ACL repair Vertical Provider Document - CONSTITUTIONAL Agree With Documented VS: Yes Notes: PHYSICAL EXAMINATION: GENERAL: Well-appearing, well-nourished and in no acute distress. A&Ox4. Answers questions appropriately HEAD: Atraumatic, normocephalic. EYES: Pupils equal round and reactive to light, extraocular movements intact, sclera anicteric, conjunctiva are normal. ENT: Nares patent and without discharge. oropharynx clear without exudates. No tonsilar hypertrophy or erythema. Moist mucous membranes. NECK: Normal range of motion, supple without lymphadenopathy LUNGS: Breath sounds clear to auscultation bilaterally and equal. No wheezes rales or rhonchi. HEART: Regular rate and rhythm without murmurs, rubs, gallops. ABDOMEN: Soft, nontender, nondistended abdomen. Musculoskeletal: FROM to passive/active. Strength 5+/5. Extremities: No cyanosis, clubbing, or edema b/l. Peripheral pulses 2+. Capillary refill less than 3 seconds. NEUROLOGICAL: Cranial nerves grossly intact. Normal speech, normal gait. Normal sensory, motor exams PSYCH: Normal mood, normal affect. SKIN: Warm, Dry, normal turgor, no rashes or lesions noted. - INFECTION CONTROL TRAVEL OUTSIDE OF THE [place] IN LAST 30 DAYS: No Course - Re-evaluation Re-evalutation: 03/03/19 09:[address] Blanco. We will provide a 1 week supply only. EKG ordered. 03/03/19 09:43 Patient is an afebrile, well-hydrated, 28-year-old male who presents for medication refill for his mental health disorders. Vitals are acceptable without significant tachycardia, tachypnea, or hypoxia. PE is otherwise unremarkable. Patient is nontoxic-appearing and is tolerating p.o. without difficulty. EKG was acceptable. No further work-up warranted at this time. Patient advised that he needs to follow-up with 1 of the psychiatric facilities for medication refills. Return to the ED with any other worsening/concerning symptoms. Patient is in agreement. - Vital Signs Vital signs: Temp Pulse Resp BP Pulse Ox 98.4 F 96 16 140/91 H 96 03/03/19 09:23 03/03/19 09:23 03/03/19 09:23 03/03/19 09:23 03/03/19 09:23 Discharge - Discharge Clinical Impression: Medication refill Condition: Stable Disposition: HOME, SELF-CARE Additional Instructions: Maintain adequate fluid and food intake Healthy diet and exercise Take medications as directed Monitor for any worsening symptoms Make sure you are staying hydrated enough to urinate and have normal BM's Recheck with your PCM in 2-3 days Follow-up with a psychiatric facility in the next week Return to the ED with any worsening symptoms and/or development of fever, headache, changes in behavior/mentation/vision/speech, chest pain, palpitations, syncope, shortness of breath, trouble breathing, abdominal pain, n/v/d, blood in stool/urine, loss of control of bowel/bladder, urinary retention, muscle weakness/paralysis, saddle anesthesia, numbness/tingling, or other worsening symptoms that are concerning to you. Prescriptions: Haloperidol [Haldol 5 mg Tablet] 10 mg PO QHS 7 Days #14 tablet Benztropine Mesylate [Cogentin 1 mg Tablet] 1 tab PO BID #14 tab Forms: Elevated Blood Pressure Referrals: [facility] [Provider Group] - Follow up as needed [facility] [Provider Group] - Follow up as needed
--- NOTE | 2019-03-03 19:03 | EKG REPORT ---
SEVERITY:- NORMAL ECG - SINUS RHYTHM : Confirmed by: Terrie Schafer MD 03-Mar-2019 19:02:15
== END 2019-03-03 09:52 | disposition home or self-care (01) ==
LOC: ER 09:21
DX: Z76.0 Encounter for issue of repeat prescription (principal); F20.9 Schizophrenia, unspecified; T43.4X6A Underdosing of butyrophenone and thiothixene neuroleptics, initial encounter; T44.3X6A Underdosing of other parasympatholytics [anticholinergics and antimuscarinics] and spasmolytics, initial encounter; Z91.128 Patient's intentional underdosing of medication regimen for other reason; Z91.14 Patient's other noncompliance with medication regimen
CPT/HCPCS: 93005; 93010; 99282

== ENCOUNTER 2019-03-15 08:33 | Emergency (ER) | payer SELFPAY ==
[2019-03-15 08:38] VITALS: BP 146/77
--- NOTE | 2019-03-15 09:10 | ER Document Report ---
HPI - HPI Time Seen by Provider: 03/15/19 09:05 Pain Level: Denies Notes: Patient is a 28-year-old male with a history of schizophrenia and bipolar who presents requesting medication refill of his Cogentin 1 mg twice daily and Haldol 5 mg at night. Patient states that he has been out for a few days and is not scheduled to see another provider until the 21 of march or the depending on if there is a cancellation. Patient states that he is otherwise been status quo without any acute changes in his health or mentation. Patient does not have any SI/HI. He does have chronic issues with visual and auditory hallucinations. Denies drug allergies. Denies any headache, fever, neck pain, changes in vision/speech/mentation/hearing, URI, sore throat, chest pain, palpitations, syncope, cough, shortness of breath, wheeze, dyspnea, abdominal pain, nausea/vomiting/diarrhea, urinary retention, dysuria, hematuria, loss of control of bowel or bladder, numbness/tingling, muscle paralysis/weakness, or rash. - ROS Systems Reviewed and Negative: Yes All other systems reviewed and negative - CONSTITUTIONAL Constitutional: DENIES: Fever, Chills - REPRODUCTIVE Reproductive: DENIES: : Past Medical History - Social History Smoking Status: Current Every Day Smoker Frequency of alcohol use: Occasional Drug Abuse: None Family History: None Patient has suicidal ideation: No Patient has homicidal ideation: No Renal/ Medical History: Denies: Hx Peritoneal Dialysis Psychiatric Medical History: Reports: Hx Bipolar Disorder, Hx Depression, Hx Schizophrenia Traumatic Medical History: Reports: Hx Fractures - Fracture left tibia this past July. Had surgery. Past Surgical History: Reports: Hx Orthopedic Surgery - Left tibia ACL repair Vertical Provider Document - CONSTITUTIONAL Agree With Documented VS: Yes Notes: PHYSICAL EXAMINATION: GENERAL: Well-appearing, well-nourished and in no acute distress. A&Ox4. Answers questions appropriately HEAD: Atraumatic, normocephalic. EYES: Pupils equal round and reactive to light, extraocular movements intact, sclera anicteric, conjunctiva are normal. ENT: Nares patent and without discharge. oropharynx clear without exudates. No tonsilar hypertrophy or erythema. Moist mucous membranes. NECK: Normal range of motion, supple without lymphadenopathy LUNGS: Breath sounds clear to auscultation bilaterally and equal. No wheezes rales or rhonchi. HEART: Regular rate and rhythm without murmurs, rubs, gallops. ABDOMEN: Soft, nontender, nondistended abdomen. Musculoskeletal: FROM to passive/active. Strength 5+/5. Extremities: No cyanosis, clubbing, or edema b/l. Peripheral pulses 2+. Capillary refill less than 3 seconds. NEUROLOGICAL: Cranial nerves grossly intact. Normal speech, normal gait. Normal sensory, motor exams PSYCH: Normal mood, normal affect. SKIN: Warm, Dry, normal turgor, no rashes or lesions noted. - INFECTION CONTROL TRAVEL OUTSIDE OF THE [place] IN LAST 30 DAYS: No Course - Re-evaluation Re-evalutation: 03/15/19 09:21 Patient is an afebrile, well-hydrated, 28-year-old male who presents for medication refill for his mental health disorders. Vitals are acceptable without significant tachycardia, tachypnea, or hypoxia. PE is otherwise unremarkable. Patient is nontoxic-appearing and is tolerating p.o. without difficulty. EKG was acceptable. No further work-up warranted at this time. [facility] alexis advised that he needs to follow-up with 1 of the psychiatric facilities for medication refills. Return to the ED with any other worsening/concerning symptoms. Patient is in agreement. - Vital Signs Vital signs: Temp Pulse Resp BP Pulse Ox 97.6 F 77 16 146/77 H 96 03/15/19 08:37 03/15/19 08:37 03/15/19 08:37 03/15/19 08:37 03/15/19 08:37 Discharge - Discharge Clinical Impression: Medication refill Condition: Stable Disposition: HOME, SELF-CARE Additional Instructions: Maintain adequate fluid and food intake Healthy diet and exercise Take medications as directed Monitor for any worsening symptoms Make sure you are staying hydrated enough to urinate and have normal BM's Recheck with your PCM in 2-3 days Follow-up with a psychiatric facility in the next week Return to the ED with any worsening symptoms and/or development of fever, headache, changes in behavior/mentation/vision/speech, chest pain, palpitations, syncope, shortness of breath, trouble breathing, abdominal pain, n/v/d, blood in stool/urine, loss of control of bowel/bladder, urinary retention, muscle weakness/paralysis, saddle anesthesia, numbness/tingling, or other worsening symptoms that are concerning to you. Prescriptions: Haloperidol [Haldol 5 mg Tablet] 5 mg PO QHS #7 tablet Benztropine Mesylate [Cogentin 1 mg Tablet] 1 tab PO BID #14 tab Forms: Smoking Cessation Education, Elevated Blood Pressure Referrals: [facility] [Provider Group] - Follow up in 1 week
--- NOTE | 2019-03-15 10:10 | EKG REPORT ---
SEVERITY:- ABNORMAL ECG - SINUS BRADYCARDIA NONSPECIFIC INTRAVENTRICULAR CONDUCTION DELAY : Confirmed by: Geoffrey Ward 15-Mar-2019 10:09:40
== END 2019-03-15 09:27 | disposition home or self-care (01) ==
LOC: ER 08:33
DX: Z76.0 Encounter for issue of repeat prescription (principal); Z79.899 Other long term (current) drug therapy; F17.200 Nicotine dependence, unspecified, uncomplicated
CPT/HCPCS: 93005; 93010; 99282

== ENCOUNTER 2020-02-29 09:56 | Emergency (ER) | payer SELFPAY ==
[2020-02-29 10:39] LABS: ABSOLUTE BASOPHILS # (AUTO) 0.1 10^3/uL (0.0-0.2); ABSOLUTE MONOCYTES (AUTO) 0.9 10^3/uL (0.1-1.4); BASOPHILS % (AUTO) 0.7 % (0-2); EOSINOPHILS % (AUTO) 0.3 % (0-6); HEMATOCRIT 46.1 % (37.9-51.0); LYMPHOCYTES % (AUTO) 20.3 % (13-45); MEAN CORPUSCULAR HEMOGLOBIN 30.1 pg (27.0-33.4); MEAN CORPUSCULAR HGB CONC 34.8 g/dL (32.0-36.0); MEAN CORPUSCULAR VOLUME 86 fl (80-97); MONOCYTES % (AUTO) 8.7 % (3-13); PLATELET COUNT 200 10^3/uL (150-450); RED BLOOD COUNT 5.33 10^6/uL (4.35-5.55); RED CELL DISTRIBUTION WIDTH 14.3 % (11.5-14.0); TOTAL CELLS COUNTED % (AUTO) 100 %
[2020-02-29] MEDS ORDERED: LORAZEPAM INJ 2 MG/1 ML VIAL IM ONE (10:40)
[2020-02-29] MEDS ORDERED: HALOPERIDOL LACTATE INJ 5 MG/1 ML VIAL IM ONE (10:40)
[2020-02-29] MEDS ORDERED: ZIPRASIDONE MESYLATE INJ/PF 20 MG SDV IM ONE (10:47)
[2020-02-29 10:54] LABS: ALBUMIN 5.1 g/dL (3.5-5.0); ALKALINE PHOSPHATASE 62 U/L (38-126); ANION GAP 10 (5-19); ASPARTATE AMINO TRANSFERASE 50 U/L (17-59); BILIRUBIN,TOTAL 0.8 mg/dL (0.2-1.3); BLOOD UREA NITROGEN 16 mg/dL (7-20); CALCIUM 10.3 mg/dL (8.4-10.2); CARBON DIOXIDE 25 mmol/L (22-30); CHLORIDE 106 mmol/L (98-107); GLUCOSE 106 mg/dL (75-110); POTASSIUM 4.5 mmol/L (3.6-5.0); TOTAL PROTEIN 8.2 g/dL (6.3-8.2)
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
[2020-02-29 12:22] LABS: ACETAMINOPHEN < 10 ug/mL (10-30); SALICYLATE < 1.0 mg/dL (2.0-20.0)
[2020-02-29 15:15] LABS: AMORPHOUS SEDIMENT,URINE TRACE /HPF; APPEARANCE,URINE TURBID; BILIRUBIN,URINE NEGATIVE (NEGATIVE); COLOR,URINE YELLOW; GLUCOSE, URINE NEGATIVE (NEGATIVE); KETONES,URINE NEGATIVE (NEGATIVE); LEUKOCYTE ESTERASE,URINE NEGATIVE (NEGATIVE); NITRITE,URINE NEGATIVE (NEGATIVE); PROTEIN,URINE 30 mg/dL (NEGATIVE); URINE SPECIFIC GRAVITY 1.024; UROBILINOGEN,URINE NEGATIVE mg/dL (<2.0)
[2020-02-29 15:39] LABS: URINE AMPHETAMINES SCREEN NEGATIVE; URINE BARBITURATES SCREEN NEGATIVE; URINE BENZODIAZEPINES SCREEN NEGATIVE; URINE MARIJUANA (THC) SCREEN NEGATIVE; URINE METHADONE SCREEN NEGATIVE; URINE PHENCYCLIDINE SCREEN NEGATIVE
[2020-02-29 15:46] LABS: URINE COCAINE SCREEN NEGATIVE
--- NOTE | 2020-02-29 16:15 | EKG REPORT ---
SEVERITY:- ABNORMAL ECG - SINUS RHYTHM PROBABLE LEFT VENTRICULAR HYPERTROPHY BORDERLINE T ABNORMALITIES, INFERIOR LEADS : Confirmed by: Reed Angel MD 29-Feb-2020 16:14:09
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
--- NOTE | 2020-03-01 12:26 | ER Document Report ---
Doctor's Note Notes: 03/01/20 12:25 Patient is laying in the bed in no acute distress. He is answering questions appropriately. He is making good eye contact. Patient is not having any acting out behaviors overnight or through this morning. He has been evaluated by the psychiatric team who have come up with a plan with the patient for further outpatient care. No suicidal or homicidal ideations at this time
[2020-03-01 12:28] VITALS: BP 132/68
== END 2020-03-01 12:50 | disposition home or self-care (01) ==
LOC: ER 09:56
DX: F20.9 Schizophrenia, unspecified (principal); F31.9 Bipolar disorder, unspecified; R63.0 Anorexia; R45.851 Suicidal ideations; Z79.899 Other long term (current) drug therapy; Z88.8 Allergy status to other drugs, medicaments and biological substances; Z87.891 Personal history of nicotine dependence
CPT/HCPCS: 99285; 96372; 36415; 80307 ×4; 85025; 80053; 81001; 93005; 93010; J2060; J3486